=== PATIENT | female | born 1950 | race Native Hawaiian/Other Pacific Islander ===

== ENCOUNTER 2021-01-17 08:25 | Outpatient (CLI) | payer OTHER | END 2021-01-17 20:40 | disposition home or self-care (01) | LOC: NM 08:25 | PROVIDERS: ATTEND Nurse Practitioner Family | DX: K21.9 Gastro-esophageal reflux disease without esophagitis (principal); R10.11 Right upper quadrant pain | CPT/HCPCS: A9537 ==